=== PATIENT | male | born 1990 | race Native Hawaiian/Other Pacific Islander ===

== ENCOUNTER 2025-07-26 08:21 | Outpatient (AMB) | payer BC, SELFPAY ==
--- NOTE | 2025-07-26 10:21 | MHC.OFFVISWM ---
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 BMI 52.2: Details: Start time: 10.09am, End time: 10.56am ?I spent 40 minutes speaking with the patient on the phone plus an additional 5 minutes reviewing and updating records for a total of 45 minutes HPI Comments Details: Previous weight loss efforts: self diets and exercise Wakes up: 3am, Sleeps: 8pm Breakfast: skips Lunch: 12pm (banana, or apple, peanut butter sandwich) Dinner: 5pm (pasta, meatballs) Snacks: 7pm (fruit: grapes) Exercise: has home treadmill (tracks calories and inclines) Beverages: Coffee (1 cup/d with splenda and creamer), Tea: Whit tea, Soda: regular Gingeale (1 every other week), Juice: daily (2 cups orange or cranberry juice), ETOH: none PFSH Medical History (Updated 07/26/25 @ 10:22 by Harshad Adair MD) Morbidly obese Surgical History (Updated 07/17/25 @ 15:15 by Justine Bell CMA) No history of previous surgery Family History (Updated 07/17/25 @ 15:16 by Justine Bell CMA) Father Diabetes Paternal Grandmother Diabetes Social History (Updated 07/17/25 @ 15:16 by Justine Bell CMA) Alcohol intake: former Patient Tobacco Use Status: Former Tobacco user Telehealth Telehealth Telehealth Platform: Telephone Location of provider rendering services: practice address Location of patient: address on file Patient Identification confirmed using: Name, : Yes Telehealth method: voice only Patient verbally consented to treatment: Yes Patient verbally consented to billing insurance company: Yes Patient informed of any privacy concerns related to visit: Yes Minutes spent on Phone/Video with Pt.: 45 Assessment & Plan Assessment & Plan (1) Morbidly obese: Code(s): E66.01 - Morbid (severe) obesity due to excess calories Category: Medical Plan: 1.? Plan for lap sleeve gastrectomy. If diaphragmatic or ventral hernias are present at time of surgery, these will be repaired laparoscopically as well. I emphasized the importance of close follow-up, adherence to instructions and good communication. The surgery does not replace the need to change your lifestlyle which is the cause of the obesity problem. The surgery provides the motivation to try again to change your lifestyle, it reduces the appetite and make the transition to a better lifestyle easier and doubles the amount of weight you would lose compared to doing the lifestyle change without the surgery. You will need to be on a liquid diet with protein shakes for 2 weeks before surgery to maximize weight loss and boost your nutritional status to recover better from surgery and also for the first two weeks after surgery to let the stomach heal before we introduce other foods. After the first 2 weeks we will introduce protein bars and soft foods like scrambled eggs, cottage cheese and yogurt and after the 6th week will introduce meat, fish and cooked vegetables in small amounts. Over time you should be able to eat everything in small amounts. Side effects like nausea, vomiting, heartburn or abdominal pain are not common in the practice unless you are not following in the practice. This operation requires lifetime commitment to following in our practice and communication with me. You will much less weight and experience side effects if you don?t communicate or not following in the practice. Complications are rare and in our practice is about 1/10 of the national average. However, you can develop bleeding that may require transfusion (hasn?t happened for year in the practice), you may from complications (we did not have any deaths in the practice) and infections. Infections are usually a result of breakdown in communication or not understanding or following directions correctly. They are difficult to treat, they can happen during the first 6 weeks, they may require to be in the hospital for weeks or even months, not being able to eat by mouth and you may have drains and surgeries to try and correct the issue. Other risks and complications include possible conversion to an open procedure, leaks, small bowel obstruction, blood clots, cardiac, or pulmonary complications, as penitentiary complications such as ulcers, insufficient weight loss and vitamin deficiencies. 2. Nutritional counseling. Start with one premade PREMIER protein (buy at [facility] or [employer]) shake (8oz of Premier mixed and NOT the whole bottle) at 4am-6am, one protein bar (Fit Crunch protein bar, buy at [employer], or [facility]) at 7am-9am, another premade PREMIER protein shake (8oz of Premier mixed and NOT the whole bottle) at 10am-12pm, another [employer] protein bar at 1pm-3pm,? dinner at 4pm (14 forks of protein and 14 forks of salad/vegetables) and one more [employer] Crunch protein bar at 6pm-8pm So you do 2 protein shakes, 3 protein bars and one meal per day. Meal to include lean meat (beef, fish, pork, turkey, chicken), or Czech yogurt, or egg whites, or beans with a salad with olive oil and fruits (berries, pears, apples, kiwi). Avoid salt, breads, potatoes, rice, pasta, desserts. 3. Each shake would be drunk slowly, like coffee in a period of 2 hours. 4. Cut each bar in 4 pieces and eat each piece in 30min ?to make each bar last 2 hours. 5. I emphasized the importance of measuring accurately the food portion and measure it when serving the food in plate 6. The meal portions include 14 full-size forks of meat and 14 full-size forks of salad. You always eat the meat portion but you can replace up to 7 forks for salad/vegetables with rice, potatoes or pasta, or a fruit ?if you like. The less you do it the better weight loss will be. 7. One full-size fork is what it can be scooped on the fork without falling aside and not what can be bit with the fork. Use regular forks like those you find in a typical restaurant. 8.? Please buy the body composition scale we discussed and send me weight measurements as soon as possible and then once a week. Always include your diet and exercise plan. 9. Start treadmill with an incline of 2.0 and speed of 2.5mph. Increase incline by 1 every 3 min to a max incline of 8.0, stay 3min at 8.0 and then return to 2.0 and repeat same steps until calorie goal is met. Goal is to burn 2000 calories per week on exercise, which means either 300 calories daily, or 400 calories 5 days per week, or 500 calories 4 days per week. 10. Goal is to lose at least 1.5-2lbs per week 11. Goal to lose 10% of your weight before surgery, which is about 35lbs. Ultimate weight goal: 313lbs before surgery 12. Please follow the diet plan exactly without any change. If you don't like something about the plan or you feel hungry you need to communicate with me so I can help you revise the plan. You should not change the plan yourself 13. To be scheduled for EGD to assess the stomach's anatomy. The possibility of biopsies was discussed. Patient needs to avoid use of NSAIDs and aspirin for 1 week prior to EGD. You must be on liquids only the day before your endoscopy. Risks of perforation and bleeding was discussed with the patient. This will be an outpatient procedure with IV sedation. 14. Start the Phentermine daily at 7am. We discussed the potential side-effects of the Phentermine such as irritability and high blood pressure. I asked him to get a blood pressure monitor and measure the blood pressure daily in the morning and evening. She needs to call the office for blood pressure over 140/80 and he understands that.
[2025-07-26 10:27] VITALS: BMI 52.2
== END 2025-07-26 10:57 | disposition home or self-care (01) ==
LOC: HO.HBS 08:21
PROVIDERS: PCP Nurse Practitioner; Visit Provider Surgery
DX: E66.01 Morbid (severe) obesity due to excess calories (principal); Z68.43 Body mass index [BMI] 50.0-59.9, adult
CPT/HCPCS: 99204

== ENCOUNTER 2025-08-21 09:59 | Outpatient (AMB) | payer BC, SELFPAY ==
--- OUTSIDE RECORDS SUMMARY | 2024-11-07 10:45 | XMS_ITS | Continuity of Care Document ---
Author Organization [facility] Address [address] [place] [id number] Phone Care Team Providers Care Rim Technician Name Role Phone Narciso HEBERT, RVT, MARIBEL, Scott Unavailable U navailable Procedures Procedure Date Office/Outpt E&M Established 15 Mins- CT & [place] Duplex Scan-extrem Veins; Comp- CT & [place] Duplex Scan-extrem Veins; Uni/ CT & [place] D Inj Scleros Solut; Mx Veins 1- CT & [place] D Ultrason Guidan Needle Bx-rad- CT & MA D Duplex Scan-extrem Veins; Uni/ CT & MA D Ultrason Guidan Needle Bx-rad- CT & MA D Inj Sclerosing Solution; Sngl- CT & [place] D Endovenous Laser, 1st Vein- CT & [place] Duplex Scan-extrem Veins; Uni/ CT & MA D Inj Scleros Solut; Mx Veins 1- CT & MA D Ultrason Guidan Needle Bx-rad- CT & MA D Ultrason Guidan Needle Bx-rad- CT & MA D Inj Sclerosing Solution; Sngl- CT & MA D Office/Outpt E&M Established 25 Mins- CT & MA Office/Outpt E&M Established 15 Mins- CT & [place] Duplex Scan-extrem Veins; Comp- CT & [place] Duplex Scan-extrem Veins; Uni/ CT & MA M Endovenous Rf, 1st Vein- CT & [place] 2023 Duplex Scan-extrem Veins; Uni/ CT & [place] M Endovenous Rf, 1st Vein- CT & [place] 2023 Offic/outpt E&m Estab 5 Min Trial- Telem edicine CT & [place] Offic/outpt E&m Estab 5 Min Trial - Tele medicine Office/Oupt E&M New Pt 45 Mins Duplex Scan-extrem Veins; Comp Advance Directives Directive Yes / No Effective Date File Name No Information Encounters Encounter Description Practice Location Reason(s) For Visit Diagnoses Date Provider Providers Copied on Encounter Office/Outpt E&M Established 15 Mins- CT & [place] [facility], [address] [place] [address] Dr Felipe [address] [id number], [id number], [place] tel:[phone] CV[place] - [place] Localized edemaCramp and spasmRestless legs syndromeVenou s insufficiency (chronic) (peripheral) 5 Narciso HEBERT RVT, MARIBEL Chavez. [address] [place] [address], [place], [place], [id number], [place]. tel:[phone] Referring Provider: Brandy Hoffman[address], [address]. tel:[phone] [facility], [address] [place] [address] Dr Felipe [address], [place], [id number], [place] tel:[phone] [place] - [place] Varicose veins of bilateral lower extremities with pain 5 Narciso HEBERT RVT, MARIBEL Chavez. [address] [place] [address], [id number], [place]. tel:[phone] Referring Provider: Brandy Hoffman[address], [address]. tel:[phone] [facility] [place], [address] [place] [address] Dr Felipe [address]Sri [place], [id number], [place] tel:[phone] CVR - [facility] Encounter for follow-up examination after completed treatment for conditions other than malignant neVaricose veins of left lower extremity with pain Sep-2 0- 4 Narciso HEBERT RVT, MARIBEL Chavez. [address] [place] [address], [place], [place], [id number], [place]. tel:[phone] Referring Provider: Brandy Hoffman, [address] [place] [address], [address]. tel:[phone] [facility] MD [place], [address] [place] [address] Dr Felipe [address]Sri [place], [id number], [place] tel:[phone] CVR - [facility] Chronic venous hypertension (idiopathic) with inflammation of left lower extremity Sep- 4 Narciso HEBERT RVT, MARIBEL Chavez. [address] [place] [address], [place], [place], [id number], [place]. tel:[phone] Referring Provider: Brandy Hoffman, [address] [place] [address], [address]. tel:[phone] [facility] MD [place], [address] [place] [address] Dr Felipe 1000[address]Sri [place], [id number], [place] tel:[phone] CVR - [facility] Encounter for follow-up examination after completed treatment for conditions other than malignant neoplasmVaric ose veins of left lower extremity with pain Dec- 2- 4 Narciso HEBERT RVT, MARIBEL Chavez. [address] [place] [address], [place], [place], [id number], [place]. tel:[phone] Referring Provider: Brandy Hoffman, [address] [place] [address], [address]. tel:[phone] [facility] MD [place], [address] [place] [address] Dr Felipe [address]Sri [place], [id number], [place] tel:[phone] CVR - [facility] Varicose veins of left lower extremity with other complications Sep-1 2- 4 Narciso HEBERT RVT, MARIBEL Chavez. [address] [place] [address], [facility] caitie, [place], [id number], [place]. tel:[phone] Referring Provider: Brandy Rouse NP Yasmin, [address] [place] [address], [address]. tel:[phone] [facility], [address] [place] [address] [facility] [address]Sri [place], [id number], [place] tel:[phone] CVR - [place] Varicose veins of left lower extremity with other complications Dec-0 4 Narciso HEBERT RVT, RPVI Robert. [address] [place] [address], [facility] [place], [place], [id number], [place]. tel:[phone] Referring Provider: Brandy Rouse NP [address], [address]. tel:[phone] [facility], [address] [place] [address] [address]Sri [place], [id number], [place] tel:[phone] [place] - [place] Encounter for follow-up examination after completed treatment for conditions other than malignant nePain in right leg Sep-0 4 Narciso HEBERT RVT, MARIBEL Chavez. [address] [place] [address], [facility], [place], [id number], [place]. tel:[phone] Referring Provider: Brandy Rouse NP, [address], [address]. tel:[phone] [facility], [address] [place] [address] Dr Felipe 1000[address]Sri [place], [id number], [place] tel:[phone] CV[place] - [place] Varicose veins of right lower extremity with other complications Dec-0 4 Narciso HEBERT RVT, MARIBEL Chavez. [address] [place] [address], [facility] [place], [place], [id number], [place]. tel:[phone] Referring Provider: Brandy Rouse NP, [address], [address]. tel:[phone] [facility], [address] [place] [address] Dr Felipe 1000SuSri rodgers [place], [id number], [place] tel:[phone] [place] - [place] Varicose veins of right lower extremity with other complications 4 Narciso HEBERT RVT, MARIBEL Chavez. [address] [place] [address], [place], [place], [id number], [place]. tel:[phone] Referring Provider: Brandy Hoffman, [address] [place] [address], [address]. tel:[phone] Office/Outpt E&M Established 25 Mins- CT & [place] [facility], [address] [place] [address] Dr Felipe 1000SuSri rodgers [place], [id number], [place] tel:[phone] [place] Chronic venous hypertension (idiopathic) with other complications of bilateral lower extremity 4 Narciso HEBERT RVT, MARIBEL Chavez. [address] [place] [address], [place], [place], [id number], [place]. tel:[phone] Referring Provider: Brandy Hoffman, [address] [place] [address], [address]. tel:[phone] Office/Outpt E&M Established 15 Mins- CT & [place] [facility], [address] [place] [address] Dr Felipe 1000SuSri rodgers MD, [id number], [place] tel:[phone] [place] Localized edemaCramp and spasmRestless legs syndromeVenou s insufficiency (chronic) (peripheral) 4 Narciso HEBERT RVT, MARIBEL Chavez. [address] [place] [address], [facility] [place], [id number], [place]. tel:[phone] Referring Provider: Brandy Hoffman, [address] [place] [address], [address]. tel:[phone] [facility] MD S[place]Z, [address] [place] [address] Dr Felipe 1000SuSri rodgers [place], [id number], [place] tel:[phone] CVR - [facility] Encounter for follow-up examination after completed treatment for conditions other than malignant neChronic venous hypertension (idiopathic) with other complications of bilateral lower extremity 4 Narciso HEBERT RVT, RPVI Robert. [address] [place] [address], [place], [place], [id number], [place]. tel:[phone] Referring Provider: Brandy Hoffman, [address] [place] [address], [address]. tel:[phone] [facility] MD [place], [address] [place] [address] Dr Felipe 1000Suite Sri Gillis [place], [id number], [place] tel:[phone] CVR - [facility] Encounter for follow-up examination after completed treatment for conditions other than malignant ne 4 Narciso HEBERT RVT, RPVI Robert. [address] [place] [address], [place], [place], [id number], [place]. tel:[phone] Referring Provider: Brandy Hoffman, [address] [place] [address], [address]. tel:[phone] [facility] MD [place], [address] [place] [address] Dr Felipe 1000Suite Sri Gillis [place], [id number], [place] tel:[phone] CVR - [facility] Chronic venous hypertension (idiopathic) with inflammation of right lower extremity 4 Narciso HEBERT RVT, RPVI Robert. [address] [place] [address], [place], [place], [id number], [place]. tel:[phone] Referring Provider: Brandy Hoffman, [address] [place] [address], [address]. tel:[phone] [facility] MD SANC[place]Z, [address] [place] [address] Dr Felipe 1000Suite Sri Gillis [place], [id number], [place] tel:[phone] CVR - [facility] Encounter for follow-up examination after completed treatment for conditions other than malignant neVaricose veins of left lower extremity with pain 4 Narciso HEBERT RVT, RPVI Robert. [address] [place] [address], [facility] [place], [id number], [place]. tel:[phone] Referring Provider: Brandy Hoffman[address], [address]. tel:[phone] [facility] MD [place], [address] [place] [address] Dr Felipe 1000SuSri rodgers [place], [id number], [place] tel:[phone] [place] Chronic venous hypertension (idiopathic) with inflammation of left lower extremity 4 Narciso HEBERT RVT, MARIBEL Chavez. [address] [place] [address], [facility] [place], [id number], [place]. tel:[phone] Referring Provider: Brandy Hoffman[address], [address]. tel:[phone] Offic/outpt E&m Estab 5 Min Trial- Telemedicine CT & [place] [facility] MD [place], [address] [place] [address] Dr Felipe [address] Sri Gillis [place], [id number], [place] tel:[phone] [place] Lymphedema, not elsewhere classifiedCra mp and spasmRestless legs syndromeVenou s insufficiency (chronic) (peripheral)H ereditary lymphedema 4 Chris Jerez. [address] [place] [address], [facility] [place], [place], [id number], [place]. tel:[phone] Referring Provider: Brandy Hoffman[address], [address]. tel:[phone] Offic/outpt E&m Estab 5 Min Trial - Telemedicine [facility] MD SANCHEZ, [address] [place] [address] Dr Felipe 1000Suite Sri Gillis [place], [id number], [place] tel:[phone] [place] Localized edemaCramp and spasmRestless legs syndromeVenou s insufficiency (chronic) (peripheral) 4 Narciso HEBERT RVT, MARIBEL Chavez. [address] [place] [address], [facility] [place], [id number], [place]. tel:[phone] Referring Provider: Brandy Hoffman, [address] [place] [address], [address]. tel:[phone] Office/Oupt E&M New Pt 45 Mins [facility], [address] [place] [address] Dr Felipe [address], [place], [id number], tel:[phone] CVR - [facility] Chronic venous hypertension (idiopathic) with other complications of bilateral lower extremityPain in right legPain in left legRestless legs syndromeVenou s insufficiency (chronic) (peripheral)C ramp and spasmLocalize d edema 3 Narciso HEBERT, RVT, MARIBEL Chavez. [address] [place] [address], [place], [place], [id number], [place]. tel:[phone] Referring Provider: Brandy Hoffman[address], [address]. tel:[phone] [facility], [address] [place] [address] [facility] [address], [place], [id number], [place] tel:[phone] CVR - [facility] Chronic venous hypertension (idiopathic) with other complications of bilateral lower extremity 3 Mikel HEBERT FACS RVT MARIBEL Tang. [address] [place] [address], [address], [place]. tel:[phone] Referring Provider: Brandy Hoffman[address], [address]. tel:[phone] Family History Family Member Type Diagnosis Age At Onset No Information Payers Payer name Insurance type Covered libertarian ID Authoralana ortega(s) [facility] [id number] Social History Type Description Quantity Date Captured Comments Alcohol Use Details Unknown Caffeine Use Details Unknown Tobacco Use Status No Information Smoking Status Former Smoker Non-Smoking Tobacco Use Details : No Details Available : No Details Available Sex Male Vital Signs Date / Time: Height Weight BMI Pulse Rate Blood Pressure Temperature Respiratory Rate Body Surface Area Head Circumference Head Circ. Percentile Wt./Rm. Percentile BMI percentile Pulse Ox Inhaled Ox 158.760 kg (350.00 lbs) 53.4 2 kg/m eter (2) 120/80 mm[Hg] Chief Complaint And Reason For Visit No Information Reason For Referral Reason For Referral No Information Plan Of Treatment Date Type Action Status Goal Diet education completed Goal Tobacco cessation counseling completed Goal Tobacco cessation counseling completed Goal Diet education completed Goal Diet education completed Goal Tobacco cessation counseling completed Goal Tobacco cessation counseling completed Goal Tobacco cessation counseling completed Goal Diet education completed Goal Tobacco cessation counseling completed Referral Ordered: Weight management: Referral to physician timeframe: 3 Months (related to Body mass index (BMI) 50-59.9 , adult) ordered Referral Ordered: Weight management: Referral to physician timeframe: 3 Months (related to Body mass index (BMI) 50-59.9 , adult) ordered Referral Ordered: Weight management: Referral to physician timeframe: 3 Months (related to Body mass index (BMI) 50-59.9 , adult) ordered Referral Ordered: Weight management: Referral to physician timeframe: 3 Months (related to Body mass index (BMI) 50-59.9 , adult) ordered History Of Present Illness Encounter Date Complaint History Of Prese nt Illness No Information Functional Status Date Functional Assessmen t No Information Instructions Date Instruction Additional Infor rosy Patient education booklet given Related to Localized edema Compression stocking usage as conservative measure Related to Localized edema Lifestyle education Related to B monika mass index (BMI) 50-59.9 , adult Giving Encouragement to exercise Related to Body mass index (BMI) 50-59.9 , adult Diet education Related to Body mass index (BMI) 50-59.9 , adult Patient education booklet given Related to Localized edema Compression stocking usage as conservative measure Related to Localized edema Lifestyle education Related to B monika mass index (BMI) 50-59.9 , adult Giving Encouragement to exercise Related to Body mass index (BMI) 50-59.9 , adult Diet education Related to Body mass index (BMI) 50-59.9 , adult Diet education Related to Body mass index (BMI) 50-59.9 , adult Patient education booklet given Related to Localized edema Compression stocking usage as conservative measure Related to Localized edema Lifestyle education Related to B monika mass index (BMI) 50-59.9 , adult Giving Encouragement to exercise Related to Body mass index (BMI) 50-59.9 , adult Patient education booklet given Related to Lymphedema, not elsewhere classified Compression stocking usage as conservative measure Related to Lymphedema, not elsewhere classified Pre and post instruc tions reviewed and provided Related to Localized edema Patient education booklet given Related to Localized edema Lifestyle education Related to B monika mass index (BMI) 50-59.9 , adult Giving Encouragement to exercise Related to Body mass index (BMI) 50-59.9 , adult Diet education Related to Body mass index (BMI) 50-59.9 , adult Pre and post instruc tions reviewed and provided Related to Chronic venous hypertension (idiopathic) with other complications of bilateral lower extremity Patient education booklet given Related to Chronic venous hypertension (idiopathic) with other complications of bilateral lower extremity Assessments Type Assessment Date assessment Localized edema assessment Cramp and spasm assessment Venous insufficiency (chronic) ( peripheral) assessment Restless legs syndrome Patient Care Teams Name Effective Dates (start - stop) Status Members No Information
--- NOTE | 2025-08-21 10:04 | MHC.WMTHER ---
Intake Intake Visit Reasons: OV BH Intake Allergies Iodinated Contrast Media (Contrast Dye) Allergy (Verified 09/05/25 06:05) Unknown [facility] Medical History Morbidly obese Surgical History No history of previous surgery Family History Father Diabetes Paternal Grandmother Diabetes Social History Alcohol intake: former Patient Tobacco Use Status: Former Tobacco user Behavioral Health Assessment Weight Management Therapy Therapy Notes Details The patient is a 35-year-old male presenting for his initial visit to begin the behavioral health assessment as part of the surgical weight loss program. He reports that his PCP initially referred him to the program. He began the process at [facility], but experienced delays due to [place] obligations [place] of [place]. Presenting Concerns Referral Source WMP-Provider Reason for referral Completion of behavioral health assessment as part of process for weight-loss surgery. Precipitating Event Obesity Living Situation Current Living Situation Rent At risk of losing current housing? No Satisfied with current living situation? Yes Comments PT lives alone. Food/Weight/Diet Expectations of change PT started the program on 07/26/2025 at 348Lbs and the initial goal is to lose 10% of your weight before surgery, which is about 35lbs. Ultimate weight goal: 313lbs before surgery Patient goals are PT is implementing the following: Current meal plan: 2 protein shakes, 3 protein bars and one meal per day. Exercise plan: Treadmill, Scale: yes Communication w/ provider: Weekly on . History/Relationship with food Example of meals before starting the program: Breakfast: Lunch: Dinner: Snacks: Drinks/Liquids: History/Relationship with weight In the last 10 years, the patient's Lowest weight was and highest Social History Family history and relationship PT is single and has an 11 year old boy. Mother lives in [place], father in the area. He has 12 siblings with whom he talks with but he is aware of more siblings. PT reports good family relationships. Parents when he was 7, he used to be with mom during the week and dad on weekends. 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 Developmental history and status None reported. Currently WNL. Social support Father, maternal grandparents. Community support None Gnosticist/Spirituality Rastafarian. Cultural/Ethnic information . Legal Involvement and History Current or historical involvement with the legal system? None reported. Education Highest grade completed HS. Some college. Preferred learning style Learn by doing Currently enrolled in educational program? No Interested in further educational program? 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 ) Wants help to find employment? 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 None Service Service? No Mental Health and Addiction Treatment Current/Past substance abuse? No Comments Alcohol: None Cigarettes/Tobacco: Quit vaping 2 weeks ago. Cannabis/Edibles: None. Current/Past addictive behavior concerns? No Psychiatric history PT denies ever being in crisis or inpatient for mental health. There is no history and/or current concern about SI/Sa and self-harm or other harm. Medical and Physical Health Summary Additional Medical History not covered in history None aditional Sexual History concerns None reported Physical exam in the last year? Yes Pain Screening Current pain? No Pain in the last few months? Yes Comments Some body aches and knee pain during winter. Medications Is the patient compliant with medications? Yes Does the patient have Ang Guardian in place? Not applicable Does the patient use complimentary health approaches? No Trauma/Abuse History History of trauma? No (SWATHI: 0) Questionnaires PHQ-9 Over the last 2 weeks, how often have you been bothered by any of the following problems? 1. Little interest or pleasure in doing things: nearly every day 2. Feeling down, depressed, or hopeless: not at all 3. Trouble falling or staying asleep, or sleeping too much: not at all 4. Feeling tired or having little energy: nearly every day 5. Poor appetite or overeating: not at all 6. Feeling bad about yourself - or that you are a failure or have let yourself or your family down: not at all 7. Trouble concentrating on things, such as reading the newspaper or watching television: not at all 8. Moving or speaking so slowly that other people could have noticed. Or the opposite - being so fidgety or restless that you have been moving around a lot more than usual: several days 9. Thoughts that you would be better off or of hurting yourself in some way: not at all Total score: 7 Depression Screening Interpretation: Positive (From new PT pack.) Depression Screening Done: Yes Source: Developed by Drs. Scott Osborne, Suzan Carrion, Jose Elkins and colleagues, with an educational jonathan from [employer]. Binge Eating Scale Group 1 A. I don't feel self-conscious about my wt. or body size when I'm with others. B. I feel concerned about how I look to others, but it normally does not make me fell disappointed with myself C. I do get self-conscious about my appearance and wt. which makes me feel disappointed in myself. D. I feel very self-conscious about my wt. and frequently I feel intense shame and disgust for myself. I try to avoid social contacts because of my self-consciousness. Response Group 1: D Group 2 A. I don't have any difficulty eating slowly in the proper manner. B. Although I seem to gobble down foods, I don't end up feeling stuffed because of eating to much. C. At times, I tend to eat quickly and then, I feel uncomfortably full afterwards. D. I have the habit of bolting down my food, without really chewing it. When this happens I usually feel uncomfortably stuffed because I've eaten to much. Response Group 2: A Group 3 A. I feel capable to control my eating urges when I want to. B. I feel like I have failed to control my eating more than the average person. C. I feel utterly helpless when it comes to feeling in control of my eating urges. D. Because I feel so helpless about controlling my eating I have become very desperate about trying to get control. Response Group 3: A Group 4 A. I don't have the habit of eating when I'm bored. B. I sometimes eat when I'm bored, but often I'm able to get busy and get my mind off food. C. I have a regular habit of eating when I'm bored, but occasionally, I can use some other activity to get my mind off eating. D. I have a strong habit of eating when I'm bored. Nothing seems to help me breath the habit. Response Group 4: C Group 5 A. I'm usually physically hungry when I eat something. B. Occasionally, I eat something on impulse even though I really am not hungry. C. I have the regular habit of eating foods, that I might not really enjoy, to satisfy a hungry feeling even though physically, I don't need the food. D. Although I'm not physically hungry, I get a hungry feeling in my mouth that only seems to be satisfied when I eat a food, like sandwich, that fills my mouth. Sometimes, when I eat the food to satisfy my mouth hunger, I then spit the food out so I won't gain weight. Response Group 5: A Group 6 A. I don't feel any guilt or self-hate after I overeat. B. After I overeat, occasionally I feel guilt or self-hate. C. Almost all the time I experience strong guilt or self-hate after I overeat. Response Group 6: A Group 7 A. I don't lose total control of my eating when dieting even after periods when I overeat. B. Sometimes when I eat a forbidden food on a diet, I feel like I blew it and eat even more. C. Frequently, I have the habit of saying to myself, I've blown it now, why not go all the way, when I overeat on a diet. When that happens I eat more. D. I have a regular habit of starting a strict diets for myself but I break the diets by going on an eating binge. My life seems to be either a feast or famine. Response Group 7: A Group 8 A. I rarely eat so much food that I feel uncomfortably stuffed afterwards. B. Usually about once a month, I each such a quantity of food, I end up feeling very stuffed. C. I have regular periods during the month when I eat large amounts of food, either at mealtime or at snacks. D. I eat so much food that I regularly feel quite uncomfortable after eating and sometimes a bit nauseous. Response Group 8: A Group 9 A. My level of calorie intake does not go up very high or go down very low on a regular basis. B. Sometimes after I overeat, I will try to reduce my caloric intake to almost nothing to compensate for the excess calories I've eaten. C. I have a regular habit of overeating during the night. It seems that my routine is not to be hungry in the morning but overeat in the evening. D. In my adult years, I have had week-long periods where I practically starve myself. This follows periods when I overeat. It seems I live a life of either feast or famine. Response Group 9: A Group 10 A. I usually am able to stop eating when I want to. I know when enough is enough. B. Every so often, I experience a compulsion to eat which I can't seem to control. C. Frequently, I experience strong urges to eat which I seem unable to control, but at other times I can control my eating urges. D. I feel incapable of controlling urges to eat. I have a fear of not being able to stop eating voluntarily. Response Group 10: A Group 11 A. I don't have any problem stopping eating when I feel full. B. I usually can stop eating when I feel full but occasionally overeat leaving me feeling uncomfortably stuffed. C. I have a problem stopping eating once I start and usually I feel uncomfortably stuffed after I eat a meal. D. Because I have a problem not being able to stop eating when I want, I sometimes have to induce vomiting to relieve my stuffed feeling. Response Group 11: A Group 12 A. I seem to eat just as much when I'm with others, Family social gatherings as when I'm by myself. B. Sometimes, when I'm with other persons, I don't eat as much as I want to eat because I'm self-conscious about my eating. C. Frequently, I eat only a small amount of food when others are present, because I'm very embarrassed about my eating. D. I feel so ashamed about overeating that I pick times to overeat when I know no one will see me. I feel like a closet eater. Response Group 12: A Group 13 A. I eat three meals a day with only an occasional between meal snack. B. I eat 3 meals a day, but I also normally snack between meals. C. When I am snacking heavily, I get in the habit of skipping regular meals. D. There are regular periods when I seem to be continually eating, with no planned meals. Response Group 13: A Group 14 A. I don't think much about trying to control unwanted eating urges. B. At least some of the time, I feel my thoughts are pre-occupied with trying to control my eating urges. C. I feel that frequently I spend much time thinking about how much I ate or about trying not to eat anymore. D. It seems to me that most of my waking hours are pre-occupied by thoughts about eating or not eating. I feel like I'm constantly struggling not to eat. Response Group 14: A Group 15 A. I don't think about food a great deal. B. I have strong craving for food but they last only for brief periods of time. C. I have days when I can't seem to think about anything else but food. D. Most of my days seem to be pre-occupied with thoughts about food. I feel like I live to eat. Response Group 15: A Group 16 A. I usually know whether or not I'm physically hungry. I take the right portion of food to satisfy me. B. Occasionally, I feel uncertain about knowing whether or not I'm physically hungry. A these times it's hard to know how much food I should take to satisfy me. C. Even though I might know how many calories I should eat, I don't have any idea what is a normal amount of food for me. Response Group 16: C Binge Eating Score: 7 Score less than 17 Minimal Risk Score between 18-26 Moderate Risk Score between 27-46 High Risk Assessment & Plan Assessment & Plan (1) Adjustment disorder: Code(s): F43.20 - Adjustment disorder, unspecified Qualifiers: Adjustment disorder type: unspecified type Qualified Code(s): F43.20 - Adjustment disorder, unspecified (2) Pre-bariatric surgery psychological evaluation: Code(s): Z71.89 - Other specified counseling Plan The patient was not cleared today as the behavioral health assessment remains incomplete. She will return in 2?4 weeks to continue the evaluation process. Next appointment: 09/06/2025 at 3:00 pm (video visit). [place] [address] Psy Diag Eval Patient Type New Diagnoses Adjustment disorder, unspecified type F43.20 Adjustment disorder type: unspecified type Pre-bariatric surgery psychological evaluation Z71.89 Time Spent (min) 55
--- OUTSIDE RECORDS SUMMARY | 2025-08-21 11:29 | XMS_ITS | Clinical Summary ---
Author Organization [facility] Address [address] [address] Phone Care Team Providers Care Certified Histologic Technician Name Role Phone Swetha Ayers NP Primary Care Provider Allergies No known active allergies Medications No known medications Social History Tobacco Use Types Packs/Day Years Used Date Smoking Tobacco: Never Assessed Education Answer Date Recorded Are you interested in more education? Not on gretta e 02/11/2023 Are you concerned about learning? Not on file 02/11/2023 No 02/11/2023 No 02/11/2023 Digital Access Answer Date Recorded No 03/14/2023 No 03/14/2023 No 03/14/2023 Reliable internet access at home? Not on file 03/14/2023 Device with a working camera? Not on file Sex and Gender Information Value Date Recorded Sex Assigned at Not on file Legal Sex Male 8:59 PM EDT Gender Identity Not on file Sexual Orientation Not on file Last Filed Vital Signs Vital Sign Reading Time Taken Comments Blood Pressure 120/90 06/10/2019 12:41 PM EDT Pulse 73 06/10/2019 12:41 PM EDT Temperature 36.4 C (97.6 F) 06/10/2019 12:41 PM EDT Respiratory Rate - - Oxygen Saturation 97% 06/10/2019 12:41 PM EDT Inhaled Oxygen Concentration - - Weight 136.1 kg (300 lb) 06/10/2019 12:41 PM EDT Height 172.7 cm (5' 8 ) 06/10/2019 12:41 PM EDT Body Mass Index 45.61 06/10/2019 12:41 PM EDT Plan of Treatment Not on file Medical Devices Not on file Insurance [facility] [place] [address] [place] [address] [address] [place] [address] [place] [address] [place] [address] PPO EPO Care Teams Certified Histologic Technician Relationship Specialty Start Date End Date Swetha Ayers NP PCP - General Family Medicine 06/10/19 Additional Source Comments The information contained in this document represents components of the legal health record. It is not the complete legal health record.[facility]
== END 2025-08-21 11:12 | disposition home or self-care (01) ==
LOC: HO.HBST 09:59
PROVIDERS: PCP Nurse Practitioner; Visit Provider Counselor Mental Health
DX: F43.20 Adjustment disorder, unspecified (principal); Z71.89 Other specified counseling
CPT/HCPCS: 90791

== ENCOUNTER 2025-08-21 09:59 | Outpatient (REF) | payer BC, SELFPAY ==
--- NOTE | ~2025-08-21 | XR_ITS ---
EXAMINATION: XR CHEST CLINICAL INFORMATION: E66.01 - Morbid (severe) obesity due to excess calories COMPARISON: None available. TECHNIQUE: 2 views of the chest were obtained. FINDINGS: No significant abnormality is noted involving the heart, lungs, mediastinum, bony thorax or soft tissues. XR/XR chest 2V IMPRESSION: No acute disease Electronically signed by: Leonardo Pierson MD 08/21/2025 12:06 PM [facility]
--- NOTE | 2025-08-21 11:24 | ECG_ITS ---
Test Reason : E66.01 Blood Pressure : */* mmHG Vent. Rate : 71 BPM Atrial Rate : 71 BPM P-R Int : 164 ms QRS Dur : 106 ms QT Int : 404 ms P-R-T Axes : 28 36 30 degrees QTcB Int : 439 ms Normal sinus rhythm Normal ECG No previous ECGs available Referred By: Harshad Adair Electronically Signed By: Dell Duenas
[2025-08-21 11:41] LABS: MANUAL DIFF FLAG NO
[2025-08-21 11:54] LABS: Hematocrit 45.8 % (42.0-52.0); Hemoglobin 15.5 g/dl (14.0-18.0); Imm Gran Abs Auto 0.03 X10*3/uL (0.00-0.03); Imm Gran Pct Auto 0.4 % (0.0-0.4); Lymphocytes Absolute Auto 2.0 X10*3/uL (1.2-4.9); Mean Corpuscular HGB Conc 33.8 g/dl (31.0-36.0); Mean Corpuscular Hemoglobin 30.0 pg (27.0-33.0); Mean Corpuscular Volume 88.6 fL (80.0-98.0); NRBC Abs Auto 0.000 X10*3/uL (0.0-0.012); NRBC Pct Auto 0.0 /100WBC (0.0-0.2); Platelet Count 235 X10*3/uL (160-400); Red Blood Count 5.17 X10*6/uL (4.60-5.80); White Blood Count 7.7 X10*3/uL (4.8-10.8)
[2025-08-21 12:46] LABS: Alanine Aminotransferase 62 U/L (0-40); Albumin Level 4.3 g/dL (3.5-5.0); Alkaline Phosphatase 88 U/L (39-117); Anion Gap 8 (12-20); Aspartate Amino Transferase 42 U/L (5-37); Blood Urea Nitrogen 18 mg/dL (9-16); Calcium 8.9 mg/dL (8.4-10.2); Carbon Dioxide 29 mmol/L (22-29); Chloride 108 mmol/L (96-108); Cholesterol 167 mg/dL (<200); Estimated Glomerular Filt Rate > 60; HDL Cholesterol 41 mg/dL (>40); Iron 96 mcg/dL (45-160); Percent Iron Saturation 36 % (15-50); Potassium 4.2 mmol/L (3.3-5.1); Sodium 141 mmol/L (135-145); Total Iron Binding Capacity 270 mcg/dL (228-428); Total Protein 7.1 g/dL (6.5-8.0); Triglycerides 67 mg/dL (<150); Unsaturated Iron Binding 174 ug/dL
[2025-08-21 13:06] LABS: Ferritin 383 ng/mL (20-250)
[2025-08-21 13:12] LABS: Folate 11.1 ng/mL (> or = 4.0); Vitamin B12 768 pg/mL (200-900)
== END 2025-08-21 10:00 | disposition home or self-care (01) ==
LOC: HO.LAB 09:59
PROVIDERS: Surgery; PCP Nurse Practitioner; Visit Provider Counselor Mental Health
DX: Z13.1 Encounter for screening for diabetes mellitus (principal); E66.01 Morbid (severe) obesity due to excess calories
CPT/HCPCS: 36415; 71046; 80053; 80061; 82306; 82607; 82728; 82746; 83036; 83525; 83540; 84425; 84443; 84590; 84630; 85025; 86140; 93005

== ENCOUNTER → 2025-08-21 11:24 | Outpatient (BNV) | payer BC, SELFPAY | PROVIDERS: PCP Nurse Practitioner; Visit Provider Internal Medicine Cardiovascular Disease | DX: E66.01 Morbid (severe) obesity due to excess calories (principal); Z68.43 Body mass index [BMI] 50.0-59.9, adult | CPT/HCPCS: 93010 ==

== ENCOUNTER → 2025-08-21 11:41 | Outpatient (BNV) | payer BC, SELFPAY | PROVIDERS: PCP Nurse Practitioner; Visit Provider Radiology Diagnostic Radiology | DX: E66.01 Morbid (severe) obesity due to excess calories (principal) | CPT/HCPCS: 71046 ==

== ENCOUNTER 2025-09-05 05:58 | Day surgery (SDC) | payer BC, SELFPAY ==
--- OUTSIDE RECORDS SUMMARY | 2025-08-26 15:45 | XMS_ITS | Clinical Summary ---
Author Organization [facility] Address [address] [address] Phone Care Team Providers Care Abstract Clerk Name Role Phone Swetha Ayers NP Primary [...] file Medical Devices Not on file Insurance [facility] PPO E[place] [address] [place] [address] [address] [place] [address] [place] [address] PPO EPO Care Teams Abstract Clerk Relationship Specialty Start Date End Date Swetha Ayers NP PCP - General Family Medicine 06/10/19 Additional Source Comments The information contained in this document represents components of the legal health record. It is not the complete legal health record.[facility]
--- NOTE | 2025-09-02 12:15 | HO.ANESPROP2 ---
Documented by User: Tamia Holloway NP 09/02/25 12:15 HPI - Anesthesia Eval Consult details Narrative: 35yo M for Upper Endoscopy BMI 52 PMFSH Active Problems Active Problems: All Active Problems Morbidly obese (Acute) Past Medical History Medical History Morbidly obese Family History Family History Father Diabetes Paternal Grandmother Diabetes Surgical History Surgical History No history of previous surgery Social History Social History Alcohol intake: former Patient Tobacco Use Status: Former Tobacco user Use of substances other than those prescribed or required for medical reasons: No Advance Directives: No Advance Directives Information Provided: Yes Meds Allergies Allergy/AdvReac Type Severity Reaction Status Date / Time Iodinated Contrast Media Allergy Unknown Verified 09/05/25 06:05 (Contrast Dye) Assessment and Plan Assessment Anesthesia Assessment: Chart Reviewed Documented by User: Bibi Loya MD 09/05/25 07:26 PMFSH Past Medical History Medical History Morbidly obese Family History Family History Father Diabetes Paternal Grandmother Diabetes Surgical History Surgical History No history of previous surgery History of Problems with Anesthesia: No Social History Social History Alcohol intake: former Patient Tobacco Use Status: Former Tobacco user Use of substances other than those prescribed or required for medical reasons: No Advance Directives: No Advance Directives Information Provided: Yes Meds Allergies Allergy/AdvReac Type Severity Reaction Status Date / Time Iodinated Contrast Media Allergy Unknown Verified 09/05/25 06:05 (Contrast Dye) Exam Airway Mallampati Class: III (full calabrese) TM Dist: >3cm Neck ROM: Full Loose/Missing/Broken Teeth: No Heart: RRR Lungs: CTA Assessment and Plan Assessment Anesthesia Assessment: Anesthesia Plan Discussed Final Anesthetic Review History of Problems with Anesthesia: No NPO: Yes ASA Class: III Final Preanesthetic Review: Meds/Allgs Chart Reviewed, Consent Obtained/Reviewed and Anes Risks/Benef Reviewed Patient Risk: Intermediate Procedure Risk: Intermediate Anesthetic Plan Anesthetic Plan: MAC: Disposition: Standard PACU
[2025-09-03 09:39] VITALS: BMI 52.2
[2025-09-05 06:05] VITALS: BMI 51.6
[2025-09-05] MEDS: Lactated Ringers 1,000 ML 80 ML IVCONT (06:19)
[2025-09-05 06:20] VITALS: BP 139/92; PULSE 71; RESP 16; TEMP 36.7; O2SAT 96
--- NOTE | 2025-09-05 07:28 | MHC.SHP ---
Pre-Procedural Eval Section A - 24 Hr Update-Section A only Date of Service: 09/05/25 The patient is an INPATIENT: No The patient has been examined within 24 hours of the surgical procedure. The History & Physical has been completed within 30 days and I have reviewed it.: Yes Section B - Complete if H&P > 30 days Chief Complaint: Morbid (severe) obesity due to excess calories Relevant Family History (Specify if Yes): No Relevant Social History: None Present Medications: None Medical History: No relevant PMH History of Previous Operations: No relevant previous surgery Allergies: Allergies Allergy/AdvReac Type Severity Reaction Status Date / Time Iodinated Contrast Media Allergy Unknown Verified 09/05/25 06:05 (Contrast Dye) Review of Systems Sugical H&P ROS: Negative: Constitution, Cardiovascular, Respiratory, Neurological, Psychiatric, Hem-Onc, Allergic/Immunologic, Gastrointestinal, Genitourinary, Musculoskeletal, Integumentary, Endocrine and Eyes/Ears/Nose/Throat Exam Surgical H&P Exam: Normal: HEENT, Normal: Heart, Normal: Lungs, Normal: Extremities, Normal: Abdomen, Normal: Skin and Normal: Neurological Plan Diagnosis/Plan: Unchanged (EGD to assess the stomach's anatomy. Risks of bleeding and perforation were discussed with the patient and he is in agreement with the plan.) I have reviewed the history and physical and performed a pertinent physical examination on my patient. No changes have occurred unless specified. Time Spent With Patient Time: Total time managing care of this patient today ____ minutes.
--- NOTE | 2025-09-05 07:29 | PM.OP ---
Brief Operative Note Date of Service: 09/05/25 Pre-op diagnosis: Morbid obesity Post-op diagnosis: same Procedure: PROCEDURE DATE: 09/05/2025 PREOPERATIVE DIAGNOSIS: Morbid obesity POSTOPERATIVE DIAGNOSIS: ?Same as above. Normal endoscopy PROCEDURE: Ksucqvoh-[id number]-vrgclplcywbf with biopsies Surgeon: Zac Adair M.D.. Ph.D. Insurance Follow Up Rep: None ? Anesthesia: IV sedation Estimated blood loss: ?Minimal FINDINGS AND PROCEDURE: ? OPERATIVE INDICATIONS: ?The patient is a 35 year old male known to me who is interested in bariatric surgery. Based on this information I recommended an upper endoscopy to evaluate the patient's symptoms. Risks and complications of the surgery were discussed with the patient in advance particularly the possibility of perforation or bleeding that may require surgical intervention. The patient understood the risks and was in agreement with the plan. ? PROCEDURE: After informed consent was obtained by the patient, the patient was ?transferred to the Operating Room and was placed in the supine position.? After successful induction of IV sedation, a mouth block was inserted and the patient was placed in the left lateral decubitus position. An upper endoscopy was performed next, the oropharynx and esophagus appeared within the normal limits. There was no hiatal hernia. The z-line was smooth. Two biopsies were obtained from the distal esophagus 2-3 cm proximal to the GE junction and two additional biopsies from the GE junction. The stomach was entered and it appeared to be of normal size. There was no gastritis. There was no stricture or ulcer. A biopsy was obtained from the gastric fundus and the antrum. No significant bleeding was noted from any of the biopsy sites. Retroflexion of the scope confirmed the presence of a normal GE junction. The scope was then advanced into the duodenum all the way to the 4th portion which appeared to be normal as well. At that point the duodenum ?and the stomach were decompressed and the scope was withdrawn from the patient's mouth. The patient extubated and was transferred in stable condition to the Recovery Room for further care. I was present and performed all steps of the procedure. There were no residents to assist with this case. Alan Adair M.D., Ph.D. Surgeon: Harshad Adair MD Anesthesia: MAC Was an Insurance Follow Up Rep used for this Procedure?: No Estimated blood loss (mL): 0 IV fluids (mL): 400 Urine output (mL): 0 (No Bryson to record output) Pathology: other (1) antrum x1, 2) fundus x1, 3) GE junction x2, 4) distal esophagus x2) Condition: stable Disposition: PACU
[2025-09-05 07:51] VITALS: BP 121/78; PULSE 95; RESP 18; TEMP 36.8; O2SAT 91
[2025-09-05 08:00] VITALS: BP 113/72; PULSE 86; RESP 18; O2SAT 95
[2025-09-05 08:11] VITALS: BP 110/74; PULSE 79; RESP 18; TEMP 36.8; O2SAT 95
== END 2025-09-05 08:52 | disposition home or self-care (01) ==
PROVIDERS: PCP Nurse Practitioner; Visit Provider Surgery
PROC: 0DJ08ZZ Inspection of Upper Intestinal Tract, Via Natural or Artificial Opening Endoscopic (ICD-10-PCS; CPT 43235; principal; 2025-09-05 07:30)
DX: E66.01 Morbid (severe) obesity due to excess calories (principal); Z68.43 Body mass index [BMI] 50.0-59.9, adult; K22.70 Barrett's esophagus without dysplasia; K20.80 Other esophagitis without bleeding; Z91.041 Radiographic dye allergy status; Z87.891 Personal history of nicotine dependence
CPT/HCPCS: 43239; 88305; 88313; 88342; J2003; J2250; J2704

== ENCOUNTER → 2025-09-05 05:58 | Outpatient (BNV) | payer BC, SELFPAY | PROVIDERS: PCP Nurse Practitioner; Visit Provider Surgery | DX: E66.01 Morbid (severe) obesity due to excess calories (principal); Z68.43 Body mass index [BMI] 50.0-59.9, adult | CPT/HCPCS: 43239 ==